=== PATIENT | female | born 1980 | race Caucasian/White ===

== ENCOUNTER 2020-02-22 17:24 | Emergency (ER) | payer OTHER ==
[~2020-02-22] VITALS: Ht 162.6 cm; Wt 185.0 kg
[~2020-02-22 17:24] MED LIST: ALPR0.5T PO; BUPR150T8 PO; BUTA1CAP29 PO; GABA300C18 PO; HYDR-2678 PO; Hydrocodone/Acetaminophen PO; OMEP20CA16 PO; OXYC1TAB19 PO; PROP40TA PO; TIZA4TAB2 PO; VENL75TA PO
[2020-02-22 17:42] VITALS: BP 118/80
--- NOTE | 2020-02-22 18:02 | PHYS DOC ---
Past Medical History Past Medical History: Anxiety, Hypertension Past Surgical History: Appendectomy, Cholecystectomy, Tonsillectomy Smoking Status: Current Every Day Smoker Alcohol Use: Occasionally Drug Use: None General Adult EDM: Chief Complaint: BACK PAIN OR INJURY HPI: HPI: Patient is a 39 year old female who presents to the emergency department with reports of increased pain in the left side of her neck that radiates down her left arm since feeling a pop in her neck at approximately 1600. Patient states that she experienced the pop when she lifted her child up. Patient reports a history of chronic neck pain and states that she needs to have cervical spine surgery. She denies any numbness, weakness, or decreased sensation of her left upper extremity. She states that the pain feels like a shooting sensation. She currently rates her pain a 9 out of 10 on the pain scale, she denies any alleviating factors. Patient states that her primary care doctor often prescribes her to hydrocodone 10/325 mg tablets for control of her pain. She states she is out of this medication at this time. Patient denies any concerns of she states she is currently on her menstrual cycle. Review of Systems: Review of Systems: Complete ROS is negative unless otherwise noted in HPI. Heart Score: Risk Factors: Risk Factors: DM, Current or recent (<one month) smoker, HTN, HLP, family history of CAD, obesity. Risk Scores: Score 0 - 3: 2.5% MACE over next 6 weeks - Discharge Home Score 4 - 6: 20.3% MACE over next 6 weeks - Admit for Clinical Observation Score 7 - 10: 72.7% MACE over next 6 weeks - Early Invasive Strategies Allergies: Allergies: Allergies Coded Allergies Type Severity Reaction Last Updated Verified No Known Drug Allergies 10/10/14 No Physical Exam: PE: Constitutional: Well developed, well nourished, no acute distress, non-toxic appearance. [] HENT: Normocephalic, atraumatic, bilateral external ears normal, nose normal. [] Eyes: PERRLA, EOMI, conjunctiva normal, no discharge. [] Neck: Normal range of motion, no bony tenderness, supple, no stridor; right paraspinal cervical tenderness to palpation that extends to left shoulder, concerning for trapezius strain/acute torticollis. [] Cardiovascular:Heart rate regular rhythm, no murmur [] Lungs & Thorax: Respirations even and unlabored, no retractions, no respiratory distress Skin: Warm, dry, no erythema, no rash. [] Back: No bony tenderness Extremities: No cyanosis, ROM intact, no edema; bilateral upper extremity strength 5/5 [] Neurologic: Alert and oriented X 3, normal motor function, normal sensory function, no focal deficits noted. [] Psychologic: Affect normal, judgement normal, mood normal. [] Current Patient Data: Vital Signs: Vital Signs Date Time Temp Pulse Resp B/P (MAP) Pulse Ox O2 Delivery O2 Flow Rate FiO2 02/22/20 17:42 98.1 81 20 118/80 (93) 99 Room Air 98.1 EKG: EKG: [] Radiology/Procedures: Radiology/Procedures: [] Course & Med Decision Making: Course & Med Decision Making Pertinent Labs and Imaging studies reviewed. (See chart for details) [] Dragon Disclaimer: Dragon Disclaimer: This electronic medical record was generated, in whole or in part, using a voice recognition dictation system. Departure Departure Impression: Primary Impression: Cervical radicular pain Additional Impression: Trapezius muscle strain Qualified Codes: S46.812A - Strain of other muscles, fascia and tendons at shoulder and upper arm level, left arm, initial encounter Disposition: 01 HOME, SELF-CARE Condition: STABLE Referrals: MADDIE HINOJOSA DO, [facility] (PCP) Patient Instructions: Cervical Radiculopathy, [id number], Torticollis, Acute Additional Instructions: Fill the prescriptions and use as directed. Follow up with your pain management doctor next week. Return to the ER if symptoms worsen. Scripts Methylprednisolone (MEDROL) 4 Mg Tab.ds.pk 1 PKG PO UD for 6 Days, #1 PKG 0 Refills Prov: TIERNEY GONZALEZ APRN 02/22/20 Orphenadrine Citrate (ORPHENADRINE CITRATE) 100 Mg Tablet.er 1 TAB PO BID PRN for PAIN for 10 Days, #20 TAB 0 Refills Prov: TIERNEY GONZALEZ APRN 02/22/20 Hydrocodone Bit/Acetaminophen (HYDROCODONE-APAP 5-325 ) 1 Tab Tablet 1 TAB PO PRN Q6HRS PRN for PAIN for 3 Days, #8 TAB 0 Refills Prov: TIERNEY GONZALEZ APRN 02/22/20 TIERNEY GONZALEZ APRN Feb 22, 2020 18:02
[2020-02-22] MEDS ORDERED: ORPHENADRINE CITRATE 60 MG/2 ML VIAL. IM ONE (18:30)
[2020-02-22] MEDS ORDERED: KETOROLAC 60 MG/2 ML VIAL. IM ONE (18:30)
[2020-02-22] MEDS ORDERED: HYDR-2761 PO (18:33)
[2020-02-22] MEDS ORDERED: METH4TAB2 PO (18:34)
[2020-02-22] MEDS ORDERED: ORPH100T PO (18:34)
== END 2020-02-22 18:42 | disposition home or self-care (01) ==
LOC: ER 17:24
DX: S46.812A Strain of other muscles, fascia and tendons at shoulder and upper arm level, left arm, initial encounter (principal); M54.12 Radiculopathy, cervical region; I10 Essential (primary) hypertension; G89.29 Other chronic pain; F17.200 Nicotine dependence, unspecified, uncomplicated; X50.9XXA Other and unspecified overexertion or strenuous movements or postures, initial encounter; Y93.89 Activity, other specified; Y92.89 Other specified places as the place of occurrence of the external cause; Y99.8 Other external cause status
CPT/HCPCS: 96372; 99284; J1885; J2360